=== PATIENT | male | born 1995 | race Caucasian/White ===

== ENCOUNTER 2019-03-25 11:51 | Emergency (ER) | payer SELFPAY ==
[~2019-03-25] VITALS: Ht 170.2 cm; Wt 121.6 kg
[2019-03-25 12:09] VITALS: BP 130/81
--- NOTE | 2019-03-25 12:11 | NUR ---
PT TO [facility], VS STABLE
--- NOTE | 2019-03-25 13:29 | NUR ---
PT AMB TO BED 11 WITH STEADY GAIT
--- NOTE | 2019-03-25 13:30 | NUR ---
23/M BIB SELF C/O EPIGASTRIC PAIN, WORSENS WITH EATING AND L EARACHE X 2 DAYS [facility].
[2019-03-25] MEDS ORDERED: KETOROLAC 30 MG/ML VIAL IM ONE (13:40)
[2019-03-25 14:51] LABS: BASOPHILS % (AUTO) 0.6 % (0.0-2.0); EOSINOPHILS # (AUTO) 0.2 K/uL (0-0.4); EOSINOPHILS % (AUTO) 2.6 % (0.0-4.0); HEMATOCRIT 44.6 % (36-52); HEMOGLOBIN 15.3 g/dL (12.0-18.0); LYMPHOCYTES # (AUTO) 2.2 K/uL (2.0-11.5); LYMPHOCYTES % (AUTO) 29.8 % (20.5-51.1); MEAN CORPUSCULAR HEMOGLOBIN 33 pg (27-31); MEAN CORPUSCULAR HGB CONC 34 g/dL (33-37); MEAN CORPUSCULAR VOLUME 97.2 fL (80-94); MONOCYTES # (AUTO) 0.4 K/uL (0.8-1.0); MONOCYTES % (AUTO) 5.7 % (1.7-9.3); NEUTROPHILS # (AUTO) 4.6 K/uL (1.8-7.7); NEUTROPHILS % (AUTO) 61.3 % (42.2-75.2); PLATELET COUNT (AUTO) 252 K/uL (140-450); RED BLOOD CELL COUNT(AUTO) 4.59 MIL/uL (4.20-6.10); RED CELL DISTRIBUTION WIDTH 12.6 % (11.6-13.7); WHITE BLOOD COUNT (AUTO) 7.5 K/uL (4.8-10.8)
[2019-03-25 14:58] LABS: BILIRUBIN,URINE NEGATIVE (NEGATIVE); BLOOD, URINE NEGATIVE (NEGATIVE); COLOR,URINE YELLOW (YELLOW); LEUKOCYTE ESTERASE ,URINE NEGATIVE (NEGATIVE); NITRITE, URINE NEGATIVE (NEGATIVE); PH,URINE 6.5 (5.0-9.0); UGLUCOSE NEGATIVE (NEGATIVE)
[2019-03-25 15:00] LABS: APPEARANCE,URINE CLEAR (CLEAR)
[2019-03-25 15:28] LABS: ANION GAP 9.8 (8-16); CARBON DIOXIDE 29.1 mmol/L (21-32); POTASSIUM 3.9 mmol/L (3.5-5.1)
[2019-03-25 15:29] LABS: CREATININE 0.9 mg/dL (0.7-1.3); TOTAL BILIRUBIN 0.3 mg/dL (0.0-1.0)
[2019-03-25 15:52] VITALS: BP 119/78
--- NOTE | 2019-03-25 15:52 | NUR ---
Patient discharged with v/s stable. Written and verbal after care instructions given and explained. Patient alert, oriented and verbalized understanding of instructions. Ambulatory with steady gait. All questions addressed prior to discharge. ID band removed. Patient advised to follow up with PMD. Rx of OMEPRAZOLE given. Patient educated on indication of medication including possible reaction and side effects. Opportunity to ask questions provided and answered.
== END 2019-03-25 15:52 | disposition home or self-care (01) ==
LOC: MED 11:51
DX: K29.70 Gastritis, unspecified, without bleeding (principal); H92.02 Otalgia, left ear; F12.10 Cannabis abuse, uncomplicated; J45.909 Unspecified asthma, uncomplicated
CPT/HCPCS: 36415; 80053; 81003; 82150; 83690; 85025; 96372; 99283; J1885